=== PATIENT | male | born 1965 | race Caucasian/White ===

== ENCOUNTER 2016-10-12 10:15 | Emergency (ER) | payer MEDICARE, OTHER ==
[~2016-10-12 10:15] MED LIST: CLIN1CAP6 PO
[2016-10-12 10:17] VITALS: BP 129/84; PULSE 72; RESP 12; TEMP 98.2; O2SAT 96
--- NOTE | 2016-10-12 11:57 | PD ---
HPI Chief Complaint: Skin Problem Time Seen by Provider: 11:50 Travel History International Travel<30 days: No Contact w/Intl Traveler<30days: No Traveled to known affect area: No History of Present Illness HPI Patient comes in complaining of continued swelling over his left elbow. Patient denies any pain with this or fevers. Patient states he's been taking antibiotics as prescribed however has stopped getting any smaller over the past 4 days. Patient's has been icing it as well as using Adolph wrap. PFSH Past Medical History Arthritis: No Depression: Yes Cancer: No Cardiovascular Problems: No Cerebrovascular Accident: No Diabetes: No Diminished Hearing: No Endocrine: No Genitourinary: No Herniated Disk: Yes Immune Disorder: No Kidney Stones: Yes Musculoskeletal: Yes (BACK PAIN) Neurologic: Yes (SCIATICA) Reproductive: No Respiratory: Yes (SOB AT TIMES) Immunizations Current: Yes Myocardial Infarction: No Past Surgical History Abdominal Surgery: No Cardiac Surgery: No Ear Surgery: No Endocrine Surgery: No Eye Surgery: No Genitourinary Surgery: No Oral Surgery: No Other Surgery: Yes (colonoscopy) Social History Alcohol Use: Yes (6 PK DAILY) Tobacco Use: Yes (2 PKS) Substance Use: Yes (ETHO, MARAJUNA) Allergies-Medications (Allergen,Severity, Reaction): Coded Allergies: No Known Allergies (Unverified , 10/12/16) Reported Meds & Prescriptions Reported Meds & Active Scripts Active Naprosyn (Naproxen) 500 Mg Tab 500 Mg PO Q12HR Clindamycin (Clindamycin HCl) 300 Mg Cap 300 Mg PO TID Review of Systems Except as stated in HPI: all other systems reviewed are Neg Physical Exam Narrative GENERAL: Well-developed, well nourished, in no acute distress, and non-ill appearing. SKIN: Warm and dry. Small fluid collection noted on left elbow consistent with bursitis. It is afebrile and non-tender. Patient has full range of motion of his elbows bilaterally. HEAD: Atraumatic. Normocephalic. EYES: Pupils equal and round. EOMI. No scleral icterus. No injection or drainage. ENT: No nasal bleeding or discharge. Mucous membranes pink and moist. NECK: Trachea midline. Supple. No nuclear rigidity. RESPIRATORY: No accessory muscle use. No respiratory distress. MUSCULOSKELETAL: No obvious deformities. No clubbing. No cyanosis. No edema. Full range of motion. NEUROLOGICAL: Awake and alert. No obvious cranial nerve deficits. Motor grossly within normal limits. Normal speech. PSYCHIATRIC: Appropriate mood and affect; insight and judgment normal. Data Data Last Documented VS Vital Signs Date Time Temp Pulse Resp B/P Pulse Ox O2 Delivery O2 Flow Rate FiO2 10/12/16 10:17 98.2 72 12 129/84 96 Room Air Orders Splint Or Brace Apply/Monitor (10/12/16 11:49) Ice/Cold Pack (10/12/16 11:49) MDM Medical Decision Making Medical Screen Exam Complete: Yes Emergency Medical Condition: Yes Differential Diagnosis Bursitis, septic arthritis, abscess, cellulitis, other Narrative Course The patient appears to have acute bursitis involving the left elbow. There is no evidence to suggest infectious bursitis at this time. There is no trauma to suspect contusion, strain or fracture. There is no clinical evidence to suggest gout or pseudogout, osteoarthritis, Rheumatoid arthritis, or septic arthritis. There is also no evidence to suggest tendonitis. The patient was placed NSAID medication. The patient was instructed on ice packs as well. The patient was instructed to follow up with orthopedics. The patient agreed with plan. Patient in no obvious distress upon re-evaluation. Patient was asked if they wanted to speak to my attending, which the patient did not wish to do at this time. Any questions/concerns in reference to patient diagnosis/condition discussed and clarified prior to patient's discharge. Reinforced sheer importance of close follow up with patient's primary physician or primary care clinic. Instructed patient to return to ED immediately, if symptoms return/ worsen. Pt showed understanding of above instructions. Further instructions and recommendations were detailed in discharge paperwork. Pt ambulated without difficulty out of ED at discharge. Diagnosis Primary Impression: Bursitis of elbow Qualified Code: M70.32 - Bursitis of left elbow Patient Instructions: Elbow Bursitis (ED), General Instructions Additional Instructions: Follow-up with your primary care physician and/or orthopedic this week for reevaluation. Take all medication as prescribed. Apply ice to affected area 20 minutes per hour to decrease swelling. Wear Adolph wrap while awake to help decrease swelling. Return to the emergency department if symptoms get worse. Med/Other Pt SpecificInfo: Prescription(s) given Scripts Naproxen (Naprosyn)500 Mg [id number] Mg PO Q12HR #20 TAB Ref 0 Prov:Harpal Retana MD 10/12/16 Disposition: 01 DISCHARGE HOME Condition: Stable Kwan Borden Oct 12, 2016 11:57
[2016-10-12] MEDS ORDERED: NAPR500 PO (11:58)
== END 2016-10-12 12:06 | disposition home or self-care (01) ==
LOC: NEPB 10:15
DX: M70.32 Other bursitis of elbow, left elbow (principal); F17.210 Nicotine dependence, cigarettes, uncomplicated; F10.20 Alcohol dependence, uncomplicated; F12.10 Cannabis abuse, uncomplicated; Y90.9 Presence of alcohol in blood, level not specified
CPT/HCPCS: 99283

== ENCOUNTER 2016-11-21 17:38 | Emergency (ER) | payer MEDICARE, OTHER ==
[~2016-11-21] VITALS: Ht 182.9 cm; Wt 74.1 kg
[~2016-11-21 17:38] MED LIST changes: +NAPR500 PO
[2016-11-21 17:40] VITALS: BP 145/87; PULSE 68; RESP 14; TEMP 98; O2SAT 98
[2016-11-21] MEDS ORDERED: NAPR500T PO (18:19)
--- NOTE | 2016-11-21 18:19 | PD ---
HPI Chief Complaint: Injury Time Seen by Provider: 18:15 Travel History International Travel<30 days: No Contact w/Intl Traveler<30days: No Traveled to known affect area: No History of Present Illness HPI 51-year-old male presents to the emergency Department with complaint of swelling to his right elbow 3-4 days. He said he fell on his elbow 3 or 4 days ago and the swelling appeared. He has had similar symptoms to the same elbow and the left elbow. He denies decreased range of motion, decreased strength, paresthesias, loss of sensation to the affected extremity. Denies fever, chills, nausea, vomiting. Says he was treated with medication the last time he was seen for the same symptom and it went away on its own. He is also had one of them drained and put on medication and antibiotics with resolution also. Denies significant past medical history. No known allergies. No other modifying factors or associated signs and symptoms. PFSH Past Medical History Arthritis: No Depression: Yes Cancer: No Cardiovascular Problems: No Cerebrovascular Accident: No Diabetes: No Diminished Hearing: No Endocrine: No Genitourinary: No Herniated Disk: Yes Immune Disorder: No Kidney Stones: Yes Musculoskeletal: Yes (BACK PAIN) Neurologic: Yes (SCIATICA) Reproductive: No Respiratory: Yes (SOB AT TIMES) Immunizations Current: Yes Myocardial Infarction: No Past Surgical History Abdominal Surgery: No Cardiac Surgery: No Ear Surgery: No Endocrine Surgery: No Eye Surgery: No Genitourinary Surgery: No Oral Surgery: No Other Surgery: Yes (colonoscopy) Social History Alcohol Use: Yes (6 PK DAILY) Tobacco Use: Yes (2 PKS) Substance Use: Yes (ETHO, MARAJUNA) Allergies-Medications (Allergen,Severity, Reaction): Coded Allergies: No Known Allergies (Unverified , 10/12/16) Reported Meds & Prescriptions Reported Meds & Active Scripts Active Naproxen 500 Mg Tab 500 Mg PO BID 14 Days Review of Systems Except as stated in HPI: all other systems reviewed are Neg Physical Exam Narrative GENERAL: Well-nourished, well-developed male patient, in no acute distress; afebrile, nontoxic-appearing SKIN: Warm and dry. HEAD: Atraumatic. Normocephalic. EYES: Pupils equal and round. No scleral icterus. No injection or drainage. ENT: Mucosa pink and moist. Airway patent. NECK: Trachea midline. CARDIOVASCULAR: Regular rate. RESPIRATORY: No accessory muscle use. GASTROINTESTINAL: Flat. MUSCULOSKELETAL: Right elbow with full range of motion and without erythema; olecranon bursitis noted to right elbow; without tenderness on palpation; without signs of septic joint; no obvious deformities. Right upper approximately supplemented with 2+ radial pulse and sensory intact without erythema or edema. No obvious deformities. No clubbing. No cyanosis. No edema. NEUROLOGICAL: Awake and alert. Oriented 3. No obvious cranial nerve deficits. Motor grossly within normal limits. Normal speech. PSYCHIATRIC: Appropriate mood and affect; insight and judgment normal. Data Data Last Documented VS Vital Signs Date Time Temp Pulse Resp B/P Pulse Ox O2 Delivery O2 Flow Rate FiO2 11/21/16 17:40 98.0 68 14 145/87 98 MDM Medical Decision Making Medical Screen Exam Complete: Yes Emergency Medical Condition: Yes Medical Record Reviewed: Yes Differential Diagnosis Olecranon bursitis, elbow fracture, contusion Narrative Course 51-year-old male with history of olecranon bursitis with his equal exam consistent with olecranon bursitis to the right elbow. He was seen in October 2016 and treated for left elbow olecranon bursitis. He has full range of motion and no tenderness on palpation I do not feel imaging is necessary. I do not suspect fracture or dislocation. Without signs of septic joint. Patient is afebrile and nontoxic-appearing. He denies fever, chills, nausea, vomiting. Naproxen prescribed for home. Instructed patient to follow up with orthopedic and he verbalized understanding and agreement for treatment plan. Patient is medically cleared and stable for discharge. Discussed reasons to return to the emergency department. Instructed patient to follow up with primary care provider. Patient agrees with treatment plan. The patients vital signs are stable and the patient is stable for outpatient follow-up and treatment. Patient discharged home, stable and in no acute distress. Diagnosis Primary Impression: Olecranon bursitis of right elbow Referrals: Primary Care Physician Patient Instructions: Elbow Bursitis (ED), General Instructions Additional Instructions: Naprosyn as prescribed and as needed for treatment of bursitis Follow-up with primary care provider Follow-up with the orthopedic Return to the emergency department immediately with worsening of symptoms Med/Other Pt SpecificInfo: Prescription(s) given Scripts Naproxen 500 Mg Gig680 Mg PO BID 14 Days Ref 0 Prov:Genna Skinenr 11/21/16 Disposition: 01 DISCHARGE HOME Condition: Stable Genna Skinner Nov 21, 2016 18:19
== END 2016-11-21 18:37 | disposition home or self-care (01) ==
LOC: NEPB 17:38
DX: M70.31 Other bursitis of elbow, right elbow (principal); F32.9 Major depressive disorder, single episode, unspecified; F17.200 Nicotine dependence, unspecified, uncomplicated
CPT/HCPCS: 99283

== ENCOUNTER 2016-12-25 21:25 | Inpatient (IN) | payer OTHER, MEDICARE ==
[~2016-12-25 21:25] MED LIST changes: -CLIN1CAP6 PO; -NAPR500 PO; +NAPR500T PO
[2016-12-25] MEDS ORDERED: DIPHTH/TETANUS/ACEL PERTUSSIS (BOOSTER) 0.5 ML VIAL/PFS IM ONE ×2 (21:34→22:21)
[2016-12-25] MEDS ORDERED: ceFAZolin 2 GM PREMIX 50 ML ONE (21:34)
[2016-12-25] MEDS ORDERED: ETOMIDATE 20 MG/10 ML VIAL ONE (21:35)
[2016-12-25] MEDS ORDERED: ROCURONIUM INJ 50 MG/5 ML VIAL ONE (21:35)
[2016-12-25] MEDS ORDERED: PROPOFOL 1000 MG/100 ML INJ 100 ML ONE (21:37)
[2016-12-25] MEDS ORDERED: IOHEXOL 350 MG/ML 10 ML VIAL (for RAD DIAG) IV ONE (21:46)
[2016-12-25 21:54] LABS: EOSINOPHIL # 0.1 TH/MM3 (0-0.4); LYMPHOCYTE # 1.8 TH/MM3 (1.0-4.8)
[2016-12-25 21:57] LABS: I-STAT POTASSIUM LESS THAN 2.0 MMOL/L (3.5-4.9); I-STAT SODIUM 154 MMOL/L (138-146)
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
[2016-12-25] MEDS ORDERED: MIDAZOLAM HCL 5 MG/ML VIAL (1 ML) ONE (22:06)
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
[2016-12-25] MEDS ORDERED: ceFAZolin 2 GM PREMIX 50 ML IV STA (22:21)
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
[2016-12-25 22:30] LABS: HEMATOCRIT 46.5 % (39.0-51.0); MEAN CELL VOLUME 93.8 FL (80.0-100.0); MEAN CORPUSCULAR HEMOGLOBIN 32.6 PG (27.0-34.0); MEAN CORPUSCULAR HGB CONC 34.8 % (32.0-36.0); RED BLOOD COUNT 4.96 MIL/MM3 (4.50-5.90); WHITE BLOOD COUNT 7.4 TH/MM3 (4.0-11.0)
[2016-12-25] MEDS ORDERED: SODIUM CHLORIDE 0.9% FLUSH 10 ML FLUSH IV FLUSH PRN (22:30)
[2016-12-25] MEDS ORDERED: MIDAZOLAM HCL 5 MG/ML VIAL (1 ML) IV PUSH ONE (22:30)
[2016-12-25] MEDS ORDERED: MAGNESIUM HYDROXIDE SUSP 30 ML CUP PO PRN (22:30)
[2016-12-25] MEDS ORDERED: ACETAMINOPHEN/HYDROcodone 325 MG/5 MG TAB PO PRN (22:30)
[2016-12-25] MEDS ORDERED: ONDANSETRON HCL 4 MG/2 ML VIAL IV PRN (22:30)
[2016-12-25] MEDS ORDERED: MISCELLANEOUS NURSING INFORMATION XX SCH (22:30)
[2016-12-25] MEDS ORDERED: ENALAPRILAT 1.25 MG/ML VIAL IV PRN (22:30)
[2016-12-25] MEDS ORDERED: CHLORHEXIDINE GLUCONATE 2 % 1 PACK (2 CLOTHS) TOP PRN (22:30)
[2016-12-25 22:31] LABS: HEMO FLAGS DIFF FINAL; PLATELET COUNT 137 TH/MM3 (150-450); RED CELL DISTRIBUTION WIDTH 13.2 % (11.6-17.2)
[2016-12-25 22:34] LABS: BASOPHIL % 1.1 % (0.0-2.0); EOSINOPHIL % 1.4 % (0.0-4.0); LYMPH % 24.5 % (9.0-44.0); MONO % 5.4 % (0.0-8.0); NEUT % 67.6 % (16.0-70.0)
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
[2016-12-25] MEDS ORDERED: LIDOCAINE 1%/EPINEPHrine 1:100,000 SOLN 20 ML VIAL INFIL ONE (23:00)
[2016-12-25] MEDS ORDERED: MIDAZOLAM HCL 5 MG/ML VIAL (1 ML) IM ONE (23:00)
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
[2016-12-25] MEDS ORDERED: MIDAZOLAM HCL 5 MG/5 ML VIAL IV PUSH ONE (23:30)
[2016-12-26] VITALS (11 sets, daily range): BP systolic 115–146; BP diastolic 80–86; PULSE 64–94; RESP 13–18; TEMP 96–97.8; O2SAT 93–98
[2016-12-26] MEDS: SODIUM CHLOR 0.9% 1000 ML INJ 1,000 ML IV SCH ×3 (00:11→18:28)
[2016-12-26] MEDS: PANTOPRAZOLE SODIUM 40 MG VIAL IVP SCH ×2 (00:18→10:37)
[2016-12-26] MEDS: MULTIVITAMIN INJ 10 ML, THIAMINE INJ 100 MG, FOLIC ACID INJ 1 MG in SODIUM CHLORID 0.9%... IV SCH ×2 (00:37→23:04)
[2016-12-26] MEDS: MORPHINE SULFATE 4 MG/ML INJ IV PRN ×3 (01:19→10:37)
[2016-12-26] MEDS ORDERED: HALOPERIDOL LACTATE 5 MG/ML AMP IV ONE (01:21)
[2016-12-26] MEDS ORDERED: HALOPERIDOL LACTATE 5 MG/ML AMP ONE (01:30)
[2016-12-26 02:43] LABS: BICARBONATE 27.9 MEQ/L (21.0-32.0); POTASSIUM 3.5 MEQ/L (3.5-5.1)
[2016-12-26] MEDS: CHLORHEXIDINE GLUCONATE 2 % 1 PACK (2 CLOTHS) TOP SCH (04:00)
[2016-12-26] MEDS: ceFAZolin 2 GM PREMIX 50 ML IV SCH ×3 (04:19→19:56)
[2016-12-26 06:02] LABS: POTASSIUM 3.7 MEQ/L (3.5-5.1)
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
[2016-12-26 07:38] LABS: AUTOMATED NEUTROPHIL # 8.6 TH/MM3 (1.8-7.7); BASOPHIL # 0.1 TH/MM3 (0-0.2); BASOPHIL % 0.7 % (0.0-2.0); EOSINOPHIL # 0.1 TH/MM3 (0-0.4); EOSINOPHIL % 0.6 % (0.0-4.0); HEMO FLAGS DIFF FINAL; LYMPH % 19.4 % (9.0-44.0); LYMPHOCYTE # 2.3 TH/MM3 (1.0-4.8); MEAN CELL VOLUME 95.4 FL (80.0-100.0); MEAN CORPUSCULAR HGB CONC 33.5 % (32.0-36.0); MONO % 6.2 % (0.0-8.0); NEUT % 73.1 % (16.0-70.0); PLATELET COUNT 131 TH/MM3 (150-450); RED BLOOD COUNT 5.03 MIL/MM3 (4.50-5.90); RED CELL DISTRIBUTION WIDTH 13.6 % (11.6-17.2); WHITE BLOOD COUNT 11.7 TH/MM3 (4.0-11.0)
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
[2016-12-26] MEDS: DOCUSATE SODIUM 100 MG CAP PO SCH ×2 (10:37→19:55)
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
[2016-12-26] MEDS: ACETAMINOPHEN/HYDROcodone 325 MG/5 MG TAB PO PRN ×3 (11:52→23:04)
[2016-12-27] VITALS: BP 127/81; PULSE 71; RESP 16; TEMP 97.8; O2SAT 96
[2016-12-27] MEDS: CHLORHEXIDINE GLUCONATE 2 % 1 PACK (2 CLOTHS) TOP SCH ×2 (04:00→19:59)
[2016-12-27] MEDS: ceFAZolin 2 GM PREMIX 50 ML IV SCH ×3 (05:15→19:58)
[2016-12-27] MEDS: ACETAMINOPHEN/HYDROcodone 325 MG/5 MG TAB PO PRN ×3 (05:30→19:59)
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
[2016-12-27 07:11] LABS: AUTOMATED NEUTROPHIL # 6.8 TH/MM3 (1.8-7.7); BASOPHIL % 0.5 % (0.0-2.0); EOSINOPHIL # 0.2 TH/MM3 (0-0.4); EOSINOPHIL % 2.1 % (0.0-4.0); HEMATOCRIT 43.7 % (39.0-51.0); HEMO FLAGS DIFF FINAL; LYMPH % 17.3 % (9.0-44.0); LYMPHOCYTE # 1.6 TH/MM3 (1.0-4.8); MEAN CELL VOLUME 94.3 FL (80.0-100.0); MEAN CORPUSCULAR HEMOGLOBIN 32.2 PG (27.0-34.0); MEAN CORPUSCULAR HGB CONC 34.2 % (32.0-36.0); MONO % 7.7 % (0.0-8.0); NEUT % 72.4 % (16.0-70.0); PLATELET COUNT 106 TH/MM3 (150-450); RED BLOOD COUNT 4.63 MIL/MM3 (4.50-5.90); RED CELL DISTRIBUTION WIDTH 13.4 % (11.6-17.2); WHITE BLOOD COUNT 9.4 TH/MM3 (4.0-11.0)
[2016-12-27 07:26] VITALS: BP 117/78; PULSE 57; RESP 17; TEMP 97.5; O2SAT 96
[2016-12-27] MEDS ORDERED: MILKSUS PO (07:31)
[2016-12-27] MEDS ORDERED: DOCU1CAP39 PO (07:31)
[2016-12-27 07:40] LABS: ALKALINE PHOSPHATASE 76 U/L (45-117); ALT (GPT) 16 U/L (12-78); ANION GAP 6 MEQ/L (5-15); AST (GOT) 18 U/L (15-37); BICARBONATE 30.2 MEQ/L (21.0-32.0); BLOOD UREA NITROGEN 8 MG/DL (7-18); CHLORIDE 104 MEQ/L (98-107); GLOMERULAR FILTRATION RATE 140 ML/MIN (>89); MAGNESIUM 1.9 MG/DL (1.5-2.5); POTASSIUM 3.3 MEQ/L (3.5-5.1); SODIUM (NA) 140 MEQ/L (136-145); TOTAL BILIRUBIN ADULT 0.8 MG/DL (0.2-1.0)
[2016-12-27] MEDS: DOCUSATE SODIUM 100 MG CAP PO SCH ×2 (10:14→19:59)
[2016-12-27 11:45] VITALS: BP 127/79; PULSE 61; RESP 16; TEMP 97.5; O2SAT 96
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
[2016-12-27] MEDS: SODIUM CHLOR 0.9% 1000 ML INJ 1,000 ML IV SCH (14:28)
[2016-12-27 17:22] VITALS: BP 142/80; PULSE 65; RESP 16; TEMP 97.9; O2SAT 97
[2016-12-27 20:00] VITALS: BP 138/68; PULSE 64; RESP 16; TEMP 98.4; O2SAT 98
[2016-12-27] MEDS: MULTIVITAMIN INJ 10 ML, THIAMINE INJ 100 MG, FOLIC ACID INJ 1 MG in SODIUM CHLORID 0.9%... IV SCH (23:42)
[2016-12-28] VITALS: BP 140/89; PULSE 59; RESP 16; TEMP 97.4; O2SAT 96
[2016-12-28] MEDS: ACETAMINOPHEN/HYDROcodone 325 MG/5 MG TAB PO PRN ×2 (05:31→09:26)
[2016-12-28] MEDS: ceFAZolin 2 GM PREMIX 50 ML IV SCH (05:32)
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
[2016-12-28] MEDS: DOCUSATE SODIUM 100 MG CAP PO SCH (07:25)
[2016-12-28] MEDS: SODIUM CHLOR 0.9% 1000 ML INJ 1,000 ML IV SCH (07:32)
[2016-12-28 08:00] VITALS: BP 120/82; PULSE 54; RESP 16; TEMP 95.6; O2SAT 98
[2016-12-28] MEDS ORDERED: LACTULOSE SYRUP 20 GM/30 ML CUP PO ONE (08:45)
[2016-12-28] MEDS ORDERED: POTASSIUM CHLORIDE 20 MEQ CONTROLLED RELEASE TAB PO ONE (08:45)
[2016-12-28 10:59] VITALS: BP 174/95; PULSE 72; RESP 16; TEMP 96.6; O2SAT 97
[2016-12-28] MEDS ORDERED: NORC5TAB PO (11:58)
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
== END 2016-12-28 13:37 | disposition home or self-care (01) | DRG 185 ==
LOC: NEPI 21:25 → NEDA 22:19 → EDBD 22:19 → MERGE 22:19 → N03A 23:58 → N06B 12-26 16:14
PROVIDERS: ADMIT Surgery; ATTEND Surgery
PROC: 0HQ1XZZ Repair Face Skin, External Approach (ICD-10-PCS; principal; 2016-12-25)
PROC: 08QPXZZ Repair Left Upper Eyelid, External Approach (ICD-10-PCS; 2016-12-25)
DX: S22.20XA Unspecified fracture of sternum, initial encounter for closed fracture (principal); S01.112A Laceration without foreign body of left eyelid and periocular area, initial encounter; S20.219A Contusion of unspecified front wall of thorax, initial encounter; S02.2XXA Fracture of nasal bones, initial encounter for closed fracture; S59.902A Unspecified injury of left elbow, initial encounter; F10.129 Alcohol abuse with intoxication, unspecified; Y90.8 Blood alcohol level of 240 mg/100 ml or more; V43.52XA Car driver injured in collision with other type car in traffic accident, initial encounter; Y92.410 Unspecified street and highway as the place of occurrence of the external cause
CPT/HCPCS: 70450; 70486; 71010; 71260; 72125; 72128; 72131; 72170; 73070; 74177; 80048; 80053; 80307; 82435; 82565; 82947; 83735; 84132; 84295; 84520; 85025; 85610; 85730; 86850; 86900; 86901; 90471; 90715; 94150; 96374; 99291; C9113; G0390; J0690; J1630; J2250; J2270; J2405; J3411; J7030; J7040; P9612; Q9967

== ENCOUNTER 2018-03-04 08:43 | Emergency (ER) | payer MEDICARE, MEDICAID ==
[~2018-03-04] VITALS: Ht 182.9 cm; Wt 76.0 kg
[~2018-03-04 08:43] MED LIST changes: +DOCU1CAP39 PO; +MILKSUS PO; -NAPR500T PO; +NORC5TAB PO
[2018-03-04 08:50] VITALS: BP 160/112; PULSE 103; RESP 19; TEMP 98.7; O2SAT 98
[2018-03-04] MEDS ORDERED: SODIUM CHLOR 0.9% 1000 ML INJ 1,000 ML IV SCH (08:50)
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
[2018-03-04] MEDS ORDERED: MORPHINE SULFATE 4 MG/ML INJ IV PUSH ONE (09:00)
[2018-03-04] MEDS ORDERED: SODIUM CHLORIDE 0.9% FLUSH 10 ML FLUSH IVF PRN (09:00)
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
[2018-03-04 10:30] VITALS: O2SAT 100
[2018-03-04 10:30] LABS: AUTOMATED NEUTROPHIL # 9.3 TH/MM3 (1.8-7.7); BASOPHIL # 0.1 TH/MM3 (0-0.2); BASOPHIL % 0.8 % (0.0-2.0); EOSINOPHIL % 0.4 % (0.0-4.0); LYMPH % 20.1 % (9.0-44.0); LYMPHOCYTE # 2.7 TH/MM3 (1.0-4.8); MEAN CELL VOLUME 94.7 FL (80.0-100.0); MEAN CORPUSCULAR HEMOGLOBIN 32.9 PG (27.0-34.0); MEAN CORPUSCULAR HGB CONC 34.7 % (32.0-36.0); MEAN PLATELET VOLUME 9.6 FL (7.0-11.0); MONO % 8.7 % (0.0-8.0); MONOCYTE # 1.2 TH/MM3 (0-0.9); PLATELET COUNT 148 TH/MM3 (150-450); RED BLOOD COUNT 4.86 MIL/MM3 (4.50-5.90); RED CELL DISTRIBUTION WIDTH 12.9 % (11.6-17.2); WHITE BLOOD COUNT 13.3 TH/MM3 (4.0-11.0)
[2018-03-04 10:32] VITALS: BP 150/101; O2SAT 98
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
[2018-03-04 10:56] LABS: BICARBONATE 22.9 MEQ/L (21.0-32.0); CALCIUM 8.3 MG/DL (8.5-10.1); CREATININE 0.68 MG/DL (0.60-1.30)
[2018-03-04 11:04] LABS: PROTHROMBIN TIME - PATIENT 10.2 SEC (9.8-11.6)
[2018-03-04] MEDS ORDERED: NORC5TAB PO (12:42)
[2018-03-04] MEDS ORDERED: COLA100C5 PO (12:42)
== END 2018-03-04 13:27 | disposition home or self-care (01) ==
LOC: NEPE 08:43
DX: S02.2XXA Fracture of nasal bones, initial encounter for closed fracture (principal); S82.832A Other fracture of upper and lower end of left fibula, initial encounter for closed fracture; F12.90 Cannabis use, unspecified, uncomplicated; Y04.0XXA Assault by unarmed brawl or fight, initial encounter; Z72.0 Tobacco use; Z79.899 Other long term (current) drug therapy
CPT/HCPCS: 70450; 70486; 71045; 72040; 73610; 80048; 80307; 85025; 85610; 85730; 96361; 96374; 99285; E0113; J2270; J7030